=== PATIENT | male | born 1965 | race Caucasian/White ===

== ENCOUNTER 2021-08-04 12:48 | Observation (INO) ==
[2021-08-04 14:31] LABS: Basophils # 0.1 10*3/uL (0.0-0.2); Basophils % 0.5 % (0.0-0.8); Eosinophils # 0.1 10*3/uL (0.0-0.87); Eosinophils % 0.4 % (0.00-10.9); Hematocrit 46.7 VOL% (42.0-52.0); Hemoglobin 15.7 GM/DL (14.0-18.0); Immature Granulocytes % 0.5 %; Immature Granulocytes Absolute 0.06 #; Lymphocytes # 2.6 10*3/uL (1.4-4.0); Mean Corpuscular HGB Conc 33.6 GM/DL (32-36); Mean Corpuscular Volume 95.3 FL (87-102); Monocytes % 5.8 % (1.7-12.7); Neutrophils % 70.8 % (38.7-73.9); Platelet Count 304 T/CUMM (130-400); Red Cell Distribution Width 13.2 % (9.3-17.3)
[2021-08-04 14:51] LABS: Bilirubin,Total 0.4 MG/DL (0.20-1.00); Calcium 9.6 MG/DL (8.5-10.1); Osmolality,Calculated 268.2 MOS/KG (273-304); Potassium 4.4 MMOL/L (3.5-5.1); Total Protein 7.5 G/DL (6.4-8.2)
[2021-08-04] MEDS ORDERED: ASPIRIN CHEW 81 MG TABLET PO STA (15:29)
[2021-08-04] MEDS ORDERED: MORPHINE 2 MG/1 ML SYRINGE IV PRN (16:01)
[2021-08-04] MEDS ORDERED: DOCUSATE SODIUM 100 MG CAPSULE PO PRN (16:01)
[2021-08-04] MEDS ORDERED: ALBUTEROL 2.5 MG/3 ML NEB RESP TX PRN (16:01)
[2021-08-04] MEDS ORDERED: NICOTINE 21 MG/24 HR PATCH TRANSDERM PRN (16:01)
[2021-08-04] MEDS ORDERED: hydrALAZINE 20 MG/1 ML VIAL IV PRN (16:01)
[2021-08-04] MEDS ORDERED: DEXTROSE 50% 25 GM/50 ML VIAL IV PRN (16:01)
[2021-08-04] MEDS ORDERED: GLUCAGON 1 MG VIAL IM PRN (16:01)
[2021-08-04] MEDS ORDERED: ONDANSETRON 4 MG/2 ML VIAL IV PRN (16:01)
[2021-08-04] MEDS ORDERED: ACETAMINOPHEN 325 MG TABLET PO PRN (16:01)
[2021-08-04 16:18] LABS: Bilirubin,Urine Negative (Negative); Blood, Urine Negative (Negative); Glucose,Urine (UA) Negative (Negative); Hyaline Casts,Urine 57 /LPF (0-3); Ketones,Urine 5 mg/dL (Negative); Mucus,Urine Few /LPF (Occasional); Nitrite,Urine Negative (Negative); Protein,Urine Negative; RBC,Urine 3 /HPF (0-4); Squamous Epithelial Cell,Urine Occasional /HPF (0-10); Urine Appearance CLEAR (Clear); Urine Color Yellow (Yellow); Urine Specific Gravity 1.027 (1.001-1.035); Urine Urobilinogen < 2.0 EU/DL (0.2-1.0)
[2021-08-04] MEDS ORDERED: ENOXAPARIN 40 MG/0.4 ML SYRINGE SUBCUT SCH (16:30)
[2021-08-04] MEDS ORDERED: NITROGLYCERIN SL 0.4 MG TABLET SL PRN (16:51)
[2021-08-04 17:29] LABS: Barbiturates Screen,Urine Negative (Negative); Benzodiazepines Screen,Urine Negative (Negative); Cannabinoid Screen,Urine Negative (Negative); Opiate Screen,Urine Negative (Negative); Phencyclidine Screen,Urine Negative (Negative)
[2021-08-04] MEDS: ROSUVASTATIN 20 MG TABLET PO SCH (20:36)
[2021-08-04] MEDS: ENOXAPARIN 100 MG/ML SYRINGE SUBCUT SCH (20:37)
[2021-08-05] MEDS: ENOXAPARIN 100 MG/ML SYRINGE SUBCUT SCH (04:07)
[2021-08-05 05:31] LABS: Basophils % 0.3 % (0.0-0.8); Eosinophils # 0.1 10*3/uL (0.0-0.87); Eosinophils % 0.5 % (0.00-10.9); Hematocrit 45.7 VOL% (42.0-52.0); Immature Granulocytes % 0.3 %; Immature Granulocytes Absolute 0.04 #; Lymphocytes # 2.4 10*3/uL (1.4-4.0); Lymphocytes % 20.2 % (21.2-54.2); Mean Corpuscular HGB Conc 32.8 GM/DL (32-36); Mean Corpuscular Volume 96.2 FL (87-102); Mean Platelet Volume 10.4 FL (9.6-12.0); Monocytes % 7.6 % (1.7-12.7); Neutrophils % 71.1 % (38.7-73.9); Platelet Count 257 T/CUMM (130-400); Red Blood Count 4.75 MC/CUMM (3.8-5.5); Red Cell Distribution Width 13.3 % (9.3-17.3); White Blood Count 11.6 T/CUMM (4-12)
[2021-08-05 06:52] LABS: Albumin 3.4 G/DL (3.4-5.0); Bilirubin,Total 1.2 MG/DL (0.20-1.00); Calcium 8.9 MG/DL (8.5-10.1); Osmolality,Calculated 265.4 MOS/KG (273-304); Potassium 4.2 MMOL/L (3.5-5.1); Risk Ratio 5.21; Thyroid Stimulating Hormone 4.02 uIU/ml (0.358-3.74); Total Protein 6.9 G/DL (6.4-8.2)
[2021-08-05] MEDS ORDERED: DIAZEPAM 5 MG TABLET PO ONE (07:03)
[2021-08-05] MEDS ORDERED: MAGNESIUM SULF RIDER 2 GM/50 ML PREMIX IV PRN (07:03)
[2021-08-05] MEDS ORDERED: diphenhydrAMINE CAP 50 MG CAPSULE PO ONE (07:03)
[2021-08-05] MEDS ORDERED: POTASSIUM CHLORIDE RIDER 10 MEQ/100 ML PREMIX IV PRN (07:03)
[2021-08-05] MEDS ORDERED: LIDOCAINE 1% 20 ML VIAL ONE (07:07)
[2021-08-05] MEDS ORDERED: HEPARIN/NACL 0.9% 2 UNITS/ML 2,000 UNIT/1,000 ML BAG IV ONE (07:07)
[2021-08-05] MEDS: ASPIRIN EC 81 MG TABLET PO SCH ×2 (07:24→09:50)
[2021-08-05] MEDS ORDERED: SODIUM CHLORIDE 0.9% 1,000 ML IV SCH (07:30)
[2021-08-05] MEDS ORDERED: MIDAZOLAM 2 MG/2 ML VIAL ONE (07:41)
[2021-08-05] MEDS ORDERED: HYDROmorphone 2 MG/1 ML VIAL ONE (07:41)
[2021-08-05] MEDS ORDERED: ZALEPLON 5 MG CAPSULE PO PRN (08:50)
[2021-08-05] MEDS ORDERED: ASPIRIN CHEW 81 MG TABLET PO SCH (09:00)
[2021-08-05] MEDS: PANTOPRAZOLE 40 MG TABLET PO SCH (09:35)
[2021-08-05] MEDS: METOPROLOL SUCCINATE XL 50 MG TABLET PO SCH (11:14)
[2021-08-05] MEDS: ROSUVASTATIN 20 MG TABLET PO SCH (20:41)
[2021-08-06 05:16] LABS: Basophils % 0.2 % (0.0-0.8); Eosinophils # 0.1 10*3/uL (0.0-0.87); Eosinophils % 0.6 % (0.00-10.9); Immature Granulocytes % 0.4 %; Immature Granulocytes Absolute 0.04 #; Lymphocytes # 2.2 10*3/uL (1.4-4.0); Lymphocytes % 21.7 % (21.2-54.2); Mean Corpuscular HGB Conc 32.6 GM/DL (32-36); Mean Corpuscular Volume 94.9 FL (87-102); Mean Platelet Volume 10.2 FL (9.6-12.0); Monocytes % 7.9 % (1.7-12.7); Neutrophils % 69.2 % (38.7-73.9); Platelet Count 215 T/CUMM (130-400); Red Blood Count 4.53 MC/CUMM (3.8-5.5); Red Cell Distribution Width 13.2 % (9.3-17.3)
[2021-08-06 05:38] LABS: Calcium 8.5 MG/DL (8.5-10.1); Osmolality,Calculated 268.1 MOS/KG (273-304)
[2021-08-06 05:47] LABS: CKMB % 9.1 %
[2021-08-06 05:52] LABS: High Sensitive Troponin I* 17062.9 ng/L (0-78)
[2021-08-06] MEDS: METOPROLOL SUCCINATE XL 50 MG TABLET PO SCH (08:29)
[2021-08-06] MEDS: PANTOPRAZOLE 40 MG TABLET PO SCH (08:29)
[2021-08-06] MEDS: ASPIRIN EC 81 MG TABLET PO SCH (08:29)
[2021-08-06 09:42] VITALS: BP 140/86
== END 2021-08-06 11:43 | disposition home or self-care (01) ==
LOC: N.ED 12:48 → N.EDINP 12:48 → N.TELEN 19:14
PROVIDERS: ADMIT Internal Medicine Geriatric Medicine; ATTEND Internal Medicine Geriatric Medicine

== ENCOUNTER 2021-08-10 09:05 | Inpatient (IN) ==
[2021-08-10] MEDS ORDERED: DEXTROSE 50% 25 GM/50 ML VIAL IV PRN (09:10)
[2021-08-10] MEDS ORDERED: GLUCAGON 1 MG VIAL IM PRN (09:10)
[2021-08-10] MEDS ORDERED: CLORAZEPATE 3.75 MG TABLET PO PRN (09:19)
[2021-08-10] MEDS ORDERED: NICOTINE 21 MG/24 HR PATCH TRANSDERM PRN (09:19)
[2021-08-10] MEDS ORDERED: MORPHINE 2 MG/1 ML SYRINGE IV PRN (09:19)
[2021-08-10] MEDS ORDERED: NITROGLYCERIN SL 0.4 MG TABLET SL PRN (09:19)
[2021-08-10] MEDS ORDERED: SODIUM CHLORIDE 0.9% 1,000 ML IV SCH (09:30)
[2021-08-10] MEDS ORDERED: CLORAZEPATE 7.5 MG TABLET PO PRN (09:30)
[2021-08-10 10:03] LABS: ABG Base Excess 1.2 MMOL/L (-2.5-2.5); ABG HCO3 25.5 MMOL/L (20-26); ABG Oxygen Saturation 98.5 % (95-100); ABG PCO2 33.9 MM HG (35-48); ABG PH 7.464 (7.35-7.45); ABG PO2 98.2 MM HG (80-95); ABG TCO2 20.5 MMOL/L (23-27)
[2021-08-10 10:09] LABS: Basophils % 0.4 % (0.0-0.8); Eosinophils # 0.1 10*3/uL (0.0-0.87); Eosinophils % 1.2 % (0.00-10.9); Hematocrit 47.4 VOL% (42.0-52.0); Hemoglobin 15.9 GM/DL (14.0-18.0); Immature Granulocytes % 0.5 %; Immature Granulocytes Absolute 0.05 #; Lymphocytes % 19.6 % (21.2-54.2); Mean Corpuscular HGB Conc 33.5 GM/DL (32-36); Mean Corpuscular Volume 93.7 FL (87-102); Mean Platelet Volume 10.9 FL (9.6-12.0); Monocytes % 7.6 % (1.7-12.7); Neutrophils % 70.7 % (38.7-73.9); Platelet Count 292 T/CUMM (130-400); Red Blood Count 5.06 MC/CUMM (3.8-5.5); Red Cell Distribution Width 12.9 % (9.3-17.3); White Blood Count 10.3 T/CUMM (4-12)
[2021-08-10 10:20] LABS: Alanine Aminotransferase 26 U/L (16-61); Albumin 3.7 G/DL (3.4-5.0); Alkaline Phosphatase 82 U/L (45-117); Aspartate Amino Transferase 21 U/L (0-37); Blood Urea Nitrogen 8 MG/DL (7-18); Calcium 9.7 MG/DL (8.5-10.1); Carbon Dioxide 29 MMOL/L (21-32); Glucose 108 MG/DL (74-106); Osmolality,Calculated 266.2 MOS/KG (273-304); Potassium 4.4 MMOL/L (3.5-5.1); Sodium 134 MMOL/L (136-145); Total Protein 8.3 G/DL (6.4-8.2)
[2021-08-10 10:21] LABS: Estimated Glom Filtration Rate 0 ML/MIN
[2021-08-10] MEDS ORDERED: DIAZEPAM 5 MG TABLET PO ONE (11:33)
[2021-08-10] MEDS ORDERED: PANTOPRAZOLE 40 MG TABLET PO ONE (11:33)
[2021-08-10] MEDS ORDERED: hydrALAZINE 20 MG/1 ML VIAL IV PRN (12:46)
[2021-08-10] MEDS: CHLORHEXIDINE 4% SOLN 118 ML BOTTLE TOP SCH ×2 (15:32→20:47)
[2021-08-10] MEDS: CHLORHEXIDINE 0.12% ORAL RINSE 60 ML BOTTLE SWISH/SPIT SCH (20:47)
[2021-08-11] MEDS ORDERED: VANCOMYCIN 1,000 MG VIAL ONE (04:24)
[2021-08-11] MEDS ORDERED: PAPAVERINE 60 MG/2 ML VIAL ONE (04:24)
[2021-08-11] MEDS ORDERED: VANCOMYCIN 500 MG VIAL ONE (04:24)
[2021-08-11] MEDS: CHLORHEXIDINE 4% SOLN 118 ML BOTTLE TOP SCH ×2 (04:50→08:09)
[2021-08-11] MEDS ORDERED: CEFUROXIME INJ 1,500 MG in SODIUM CHLORIDE 0.9% 100 ML IV ONE (05:00)
[2021-08-11] MEDS: CHLORHEXIDINE 0.12% ORAL RINSE 60 ML BOTTLE SWISH/SPIT SCH ×3 (05:18→21:58)
[2021-08-11] MEDS ORDERED: SUFentanil 250 MCG/5 ML AMP ONE (05:54)
[2021-08-11] MEDS ORDERED: SODIUM CHLORIDE 0.9% 250 ML IV ONE ×2 (05:54→05:55)
[2021-08-11] MEDS ORDERED: AMINOCAPROIC ACID 5,000 MG/20 ML VIAL ONE (05:54)
[2021-08-11] MEDS ORDERED: SODIUM CHLORIDE 0.9% 1,000 ML IV ONE (05:54)
[2021-08-11] MEDS ORDERED: HEPARIN/NACL 0.9% 2 UNITS/ML 1,000 UNIT/500 ML BAG IV ONE (05:54)
[2021-08-11] MEDS ORDERED: ETOMIDATE 40 MG/20 ML VIAL IV ONE (05:54)
[2021-08-11] MEDS ORDERED: LACTATED RINGERS 1,000 ML IV ONE (05:54)
[2021-08-11] MEDS ORDERED: LIDOCAINE 2% 5 ML VIAL ONE ×2 (05:54→10:16)
[2021-08-11] MEDS ORDERED: MIDAZOLAM 10 MG/2 ML VIAL ONE ×4 (05:54→08:43)
[2021-08-11] MEDS ORDERED: VECURONIUM 10 MG VIAL IV ONE ×3 (05:54→08:43)
[2021-08-11] MEDS ORDERED: MINERAL OIL/PETROLATUM OPH OINT 3.5 GM TUBE ONE (05:54)
[2021-08-11] MEDS ORDERED: PHENYLEPHRINE 10 MG/1 ML VIAL IV ONE (05:55)
[2021-08-11] MEDS ORDERED: PANTOPRAZOLE 40 MG TABLET PO ONE (06:00)
[2021-08-11] MEDS ORDERED: DIAZEPAM 5 MG TABLET PO ONE (06:00)
[2021-08-11] MEDS ORDERED: ePHEDrine 50 MG/ML VIAL ONE (07:27)
[2021-08-11 07:28] LABS: ABG Base Excess 0.7 MMOL/L (-2.5-2.5); ABG HCO3 25.1 MMOL/L (20-26); ABG PCO2 40.5 MM HG (35-48); ABG PH 7.406 (7.35-7.45); ABG TCO2 22.1 MMOL/L (23-27); Glucose Heart Surgery 119 MG/DL (74-106); Hematocrit Heart Surgery 40.8 PERCENT (42-52); Hemoglobin Heart Surgery 13.3 G/DL (14.0-18.0); Ionized Calcium Arterial 1.19 MMOL/L (1.21-1.46); PCO2 Patient Temp Arterial 40.5 MMHG; PH Patient Temp Arterial 7.406; Patient Temperature 37 CELCIUS; Potassium Heart/CVR 3.9 MMOL/L (3.5-5.1); Sodium Heart/CVR 138 MMOL/L (135-145)
[2021-08-11] MEDS ORDERED: POTASSIUM CHLORIDE RIDER 20 MEQ/100 ML PREMIX IV ONE (07:51)
[2021-08-11] MEDS ORDERED: NITROPRUSSIDE 50 MG/2 ML VIAL ONE (07:51)
[2021-08-11] MEDS ORDERED: SODIUM BICARBONATE 50 MEQ/50 ML VIAL IV ONE ×2 (07:51→10:17)
[2021-08-11] MEDS ORDERED: CALCIUM CHLORIDE 1,000 MG/10 ML SYRINGE IV ONE (07:52)
[2021-08-11] MEDS ORDERED: EPINEPHrine 1 MG/10 ML SYRINGE ONE (07:52)
[2021-08-11] MEDS ORDERED: PHENYLEPHRINE DRIP 40 MG/250 ML PREMIX IV ONE (07:52)
[2021-08-11] MEDS ORDERED: ALBUMIN 5% 12.5 GM/250 ML VIAL IV ONE ×2 (07:55)
[2021-08-11] MEDS ORDERED: diphenhydrAMINE 50 MG/1 ML VIAL ONE (08:43)
[2021-08-11] MEDS ORDERED: SEVOFLURANE 1 UNIT/15 MINUTE INH ONE (08:47)
[2021-08-11 08:57] LABS: Hematocrit Heart Surgery 29.5 PERCENT (42-52); Hemoglobin Heart Surgery 9.5 G/DL (14.0-18.0); PCO2 Patient Temp Venous 41.5 MM HG; PH Patient Temp Venous 7.404; PO2 Patient Temp Venous 43.2 MM HG; Potassium Heart/CVR 5.2 MMOL/L (3.5-5.1); VBG Base Excess 1.2 MEQ/L (0-4); VBG HCO3 25.3 MEQ/L (24-28); VBG Oxygen Saturation 82.6 %; VBG PCO2 45.8 MMHG (41-51); VBG PH 7.375; VBG PO2 49.6 MMHG (17-40); VBG Total CO2 24.6 MMOL/L
[2021-08-11] MEDS ORDERED: FAMOTIDINE 20 MG/2 ML VIAL IV ONE (09:23)
[2021-08-11 09:29] LABS: Hematocrit Heart Surgery 31.6 PERCENT (42-52); Hemoglobin Heart Surgery 10.2 G/DL (14.0-18.0); PCO2 Patient Temp Venous 33.2 MM HG; PH Patient Temp Venous 7.477; PO2 Patient Temp Venous 31.8 MM HG; Potassium Heart/CVR 4.8 MMOL/L (3.5-5.1); VBG Base Excess 1.4 MEQ/L (0-4); VBG HCO3 25.3 MEQ/L (24-28); VBG Oxygen Saturation 73.4 %; VBG PCO2 38.4 MMHG (41-51); VBG PH 7.432; VBG PO2 39.2 MMHG (17-40); VBG Total CO2 23.3 MMOL/L
[2021-08-11] MEDS ORDERED: SUFentanil 50 MCG/ML AMP ONE ×2 (09:55)
[2021-08-11 10:00] LABS: Hematocrit Heart Surgery 33.5 PERCENT (42-52); Hemoglobin Heart Surgery 10.8 G/DL (14.0-18.0); PCO2 Patient Temp Venous 37.1 MM HG; PH Patient Temp Venous 7.432; PO2 Patient Temp Venous 38.5 MM HG; Potassium Heart/CVR 5.2 MMOL/L (3.5-5.1); VBG Base Excess 0.7 MEQ/L (0-4); VBG HCO3 24.6 MEQ/L (24-28); VBG Oxygen Saturation 72.5 %; VBG PCO2 37.1 MMHG (41-51); VBG PH 7.432; VBG PO2 38.5 MMHG (17-40); VBG Total CO2 22.4 MMOL/L
[2021-08-11] MEDS ORDERED: DEXTROSE 5% KCL 20 MEQ 20 MEQ/1,000 ML BAG IV ONE (10:16)
[2021-08-11] MEDS ORDERED: MANNITOL 100 GM/500 ML BAG IV ONE (10:16)
[2021-08-11] MEDS ORDERED: methylPREDNISolone SOD SUC 1,000 MG/8 ML VIAL ONE (10:16)
[2021-08-11] MEDS ORDERED: ALBUMIN 25% 25 GM/100 ML VIAL IV ONE (10:16)
[2021-08-11] MEDS ORDERED: PROTAMINE SULFATE 250 MG/25 ML VIAL IV ONE (10:16)
[2021-08-11] MEDS ORDERED: MAGNESIUM SULFATE 5 GM/10 ML VIAL IV ONE (10:16)
[2021-08-11] MEDS ORDERED: HEPARIN 10,000 UNIT/10 ML VIAL ONE (10:17)
[2021-08-11] MEDS ORDERED: PROTAMINE SULFATE 50 MG/5 ML VIAL IV ONE (10:17)
[2021-08-11] MEDS ORDERED: FUROSEMIDE 20 MG/2 ML VIAL ONE (10:17)
[2021-08-11 10:30] LABS: ABG Base Excess -0.8 MMOL/L (-2.5-2.5); ABG HCO3 23.7 MMOL/L (20-26); ABG Oxygen Saturation 99.7 % (95-100); ABG PCO2 43.7 MM HG (35-48); ABG PH 7.361 (7.35-7.45); ABG TCO2 22.2 MMOL/L (23-27); Glucose Heart Surgery 226 MG/DL (74-106); Hematocrit Heart Surgery 34.3 PERCENT (42-52); Hemoglobin Heart Surgery 11.1 G/DL (14.0-18.0); Ionized Calcium Arterial 1.27 MMOL/L (1.21-1.46); PCO2 Patient Temp Arterial 43.7 MMHG; PH Patient Temp Arterial 7.361; Patient Temperature 37 CELCIUS; Potassium Heart/CVR 4.5 MMOL/L (3.5-5.1); Sodium Heart/CVR 131 MMOL/L (135-145)
[2021-08-11] MEDS ORDERED: LACTATED RINGERS 250 ML IV PRN (10:42)
[2021-08-11] MEDS ORDERED: MAGNESIUM SULF RIDER 2 GM/50 ML PREMIX IV PRN (10:42)
[2021-08-11] MEDS ORDERED: MIDAZOLAM 10 MG/2 ML VIAL IV PRN (10:42)
[2021-08-11] MEDS ORDERED: POTASSIUM CHLORIDE RIDER 10 MEQ/100 ML PREMIX IV PRN (10:42)
[2021-08-11] MEDS ORDERED: ALBUMIN 5% 12.5 GM/250 ML VIAL IV PRN (10:42)
[2021-08-11] MEDS ORDERED: VECURONIUM 10 MG VIAL IV PRN ×2 (10:42)
[2021-08-11] MEDS ORDERED: ACETAMINOPHEN 650 MG SUPP RECTAL PRN (10:42)
[2021-08-11] MEDS ORDERED: ONDANSETRON 4 MG/2 ML VIAL IV PRN (10:42)
[2021-08-11] MEDS ORDERED: DEXTROSE 50% 25 GM/50 ML VIAL IV PRN ×2 (10:42)
[2021-08-11] MEDS ORDERED: CHLORHEXIDINE 4% SOLN 118 ML BOTTLE TOP PRN (10:42)
[2021-08-11] MEDS ORDERED: POTASSIUM CHLORIDE RIDER 20 MEQ/100 ML PREMIX IV PRN (10:42)
[2021-08-11] MEDS ORDERED: PHENYLEPHRINE DRIP 40 MG/250 ML PREMIX IV PRN (10:42)
[2021-08-11] MEDS ORDERED: NITROPRUSSIDE 100 MG in DEXTROSE 5% 250 ML IV PRN (10:42)
[2021-08-11] MEDS ORDERED: MIDAZOLAM 2 MG/2 ML VIAL IV PRN (10:42)
[2021-08-11] MEDS ORDERED: INSULIN REGULAR 100 UNIT/ML IV ONE (10:42)
[2021-08-11] MEDS ORDERED: MAGNESIUM SULF RIDER 4 GM/100 ML PREMIX IV PRN (10:42)
[2021-08-11] MEDS ORDERED: CALCIUM CHLORIDE 1,000 MG/10 ML SYRINGE IV PRN (10:42)
[2021-08-11] MEDS ORDERED: INSULIN REGULAR 100 UNIT/ML IV PRN (10:42)
[2021-08-11] MEDS ORDERED: SODIUM CHLORIDE 0.45% 1,000 ML IV SCH ×2 (11:00)
[2021-08-11] MEDS ORDERED: INSULIN REGULAR DRIP 100 ML IV SCH (11:00)
[2021-08-11 11:31] LABS: ABG Base Excess 1.1 MMOL/L (-2.5-2.5); ABG HCO3 25.4 MMOL/L (20-26); ABG Oxygen Saturation 99.5 % (95-100); ABG PCO2 40.2 MM HG (35-48); ABG PH 7.413 (7.35-7.45); ABG TCO2 22.7 MMOL/L (23-27); Glucose Heart Surgery 191 MG/DL (74-106); Hematocrit Heart Surgery 37.4 PERCENT (42-52); Hemoglobin Heart Surgery 12.1 G/DL (14.0-18.0); Potassium Heart/CVR 4.2 MMOL/L (3.5-5.1)
[2021-08-11 11:37] LABS: Basophils % 0.2 % (0.0-0.8); Eosinophils # 0.1 10*3/uL (0.0-0.87); Eosinophils % 0.6 % (0.00-10.9); Hematocrit 36.3 VOL% (42.0-52.0); Immature Granulocytes Absolute 0.12 #; Lymphocytes # 0.9 10*3/uL (1.4-4.0); Lymphocytes % 6.9 % (21.2-54.2); Mean Corpuscular HGB Conc 33.6 GM/DL (32-36); Mean Corpuscular Volume 93.6 FL (87-102); Mean Platelet Volume 10.2 FL (9.6-12.0); Monocytes % 5.6 % (1.7-12.7); Neutrophils % 85.7 % (38.7-73.9); Platelet Count 249 T/CUMM (130-400); Red Cell Distribution Width 12.9 % (9.3-17.3); White Blood Count 12.5 T/CUMM (4-12)
[2021-08-11 11:38] LABS: Hemoglobin 12.2 GM/DL (14.0-18.0); Red Blood Count 3.88 MC/CUMM (3.8-5.5)
[2021-08-11 11:44] LABS: INR 1.1; PT Patient Result 12.3 SECS (10.5-12.0); Partial Thromboplastin Time 30.4 SECS (23.9-33.8)
[2021-08-11 11:50] LABS: Albumin 3.1 G/DL (3.4-5.0); Bilirubin,Total 0.8 MG/DL (0.20-1.00); Calcium 8.5 MG/DL (8.5-10.1); Potassium 4.3 MMOL/L (3.5-5.1); Total Protein 5.9 G/DL (6.4-8.2)
[2021-08-11 11:52] LABS: CKMB % 5.5 %
[2021-08-11 11:57] LABS: High Sensitive Troponin I* 5206.4 ng/L (0-78)
[2021-08-11 12:58] LABS: ABG HCO3 25.3 MMOL/L (20-26); ABG Oxygen Saturation 97.9 % (95-100); ABG PCO2 40.5 MM HG (35-48); ABG TCO2 22.5 MMOL/L (23-27); Glucose Heart Surgery 119 MG/DL (74-106); Hemoglobin Heart Surgery 12.7 G/DL (14.0-18.0); Potassium Heart/CVR 3.9 MMOL/L (3.5-5.1)
[2021-08-11] MEDS ORDERED: LACTATED RINGERS 1,000 ML IV PRN (14:25)
[2021-08-11 15:38] LABS: ABG Base Excess -0.2 MMOL/L (-2.5-2.5); ABG HCO3 24.3 MMOL/L (20-26); ABG Oxygen Saturation 95.9 % (95-100); ABG PCO2 39.4 MM HG (35-48); ABG PH 7.408 (7.35-7.45); ABG TCO2 25.5 MMOL/L (23-27); Glucose Heart Surgery 292 MG/DL (74-106); Hemoglobin Heart Surgery 13.4 G/DL (14.0-18.0); Potassium Heart/CVR 4.6 MMOL/L (3.5-5.1)
[2021-08-11 16:36] LABS: Bacteria,Urine Occasional /HPF (Few); Bilirubin,Urine Negative (Negative); Blood, Urine Negative (Negative); Glucose,Urine (UA) Negative (Negative); Hyaline Casts,Urine 1 /LPF (0-3); Ketones,Urine Negative (Negative); Nitrite,Urine Negative (Negative); Protein,Urine Negative; RBC,Urine <1 /HPF (0-4); Urine Appearance CLEAR (Clear); Urine Color Yellow (Yellow); Urine Specific Gravity 1.005 (1.001-1.035); Urine Urobilinogen < 2.0 EU/DL (0.2-1.0)
[2021-08-11 17:59] LABS: ABG Base Excess -1.2 MMOL/L (-2.5-2.5); ABG HCO3 23.4 MMOL/L (20-26); ABG Oxygen Saturation 96.5 % (95-100); ABG PCO2 38.6 MM HG (35-48); ABG PH 7.391 (7.35-7.45); ABG PO2 85.8 MM HG (80-95); ABG TCO2 20.8 MMOL/L (23-27); Glucose Heart Surgery 184 MG/DL (74-106); Hematocrit Heart Surgery 37.3 PERCENT (42-52); Hemoglobin Heart Surgery 12.1 G/DL (14.0-18.0); Potassium Heart/CVR 4.7 MMOL/L (3.5-5.1)
[2021-08-11] MEDS: CEFUROXIME INJ 1,500 MG in SODIUM CHLORIDE 0.9% 100 ML IV SCH (18:10)
[2021-08-11 18:22] LABS: ABG Base Excess -1.5 MMOL/L (-2.5-2.5); ABG HCO3 23.2 MMOL/L (20-26); ABG Oxygen Saturation 97.4 % (95-100); ABG PCO2 38.3 MM HG (35-48); ABG PO2 94.7 MM HG (80-95); ABG TCO2 20.5 MMOL/L (23-27); Glucose Heart Surgery 183 MG/DL (74-106); Hematocrit Heart Surgery 37.6 PERCENT (42-52); Hemoglobin Heart Surgery 12.2 G/DL (14.0-18.0); Potassium Heart/CVR 4.7 MMOL/L (3.5-5.1)
[2021-08-11] MEDS: KETOROLAC 30 MG/1 ML VIAL IV SCH (18:37)
[2021-08-11] MEDS ORDERED: FUROSEMIDE 40 MG/4 ML VIAL IV PRN (19:16)
[2021-08-11 20:07] LABS: CKMB % 5.1 %
[2021-08-11 20:08] LABS: High Sensitive Troponin I* 3753.7 ng/L (0-78)
[2021-08-11] MEDS: MORPHINE 10 MG/1 ML VIAL IV PRN (21:57)
[2021-08-12] MEDS: KETOROLAC 30 MG/1 ML VIAL IV SCH ×4 (01:01→21:43)
[2021-08-12] MEDS: INSULIN REGULAR 100 UNIT/ML SUBCUT SCH ×4 (01:11→18:05)
[2021-08-12 03:20] LABS: ABG HCO3 23.5 MMOL/L (20-26); ABG Oxygen Saturation 93.7 % (95-100); ABG PCO2 34.1 MM HG (35-48); ABG TCO2 20.2 MMOL/L (23-27); Glucose Heart Surgery 144 MG/DL (74-106); Hematocrit Heart Surgery 35.2 PERCENT (42-52); Hemoglobin Heart Surgery 11.4 G/DL (14.0-18.0); Potassium Heart/CVR 4.1 MMOL/L (3.5-5.1)
[2021-08-12 03:23] LABS: Basophils % 0.1 % (0.0-0.8); Hematocrit 34.1 VOL% (42.0-52.0); Hemoglobin 11.4 GM/DL (14.0-18.0); Immature Granulocytes % 0.6 %; Immature Granulocytes Absolute 0.11 #; Lymphocytes % 5.6 % (21.2-54.2); Mean Corpuscular HGB Conc 33.4 GM/DL (32-36); Mean Corpuscular Volume 94.5 FL (87-102); Mean Platelet Volume 10.5 FL (9.6-12.0); Neutrophils % 88.7 % (38.7-73.9); Platelet Count 246 T/CUMM (130-400); Red Blood Count 3.61 MC/CUMM (3.8-5.5); Red Cell Distribution Width 12.9 % (9.3-17.3); White Blood Count 18.3 T/CUMM (4-12)
[2021-08-12 03:43] LABS: Albumin 3.2 G/DL (3.4-5.0); Bilirubin,Direct 0.1 MG/DL (0.0-0.20); Bilirubin,Total 0.5 MG/DL (0.20-1.00); CKMB % 3.9 %; Calcium 8.2 MG/DL (8.5-10.1); Osmolality,Calculated 273.1 MOS/KG (273-304); Potassium 4.1 MMOL/L (3.5-5.1); Total Protein 6.6 G/DL (6.4-8.2)
[2021-08-12 03:44] LABS: High Sensitive Troponin I* 3338.4 ng/L (0-78)
[2021-08-12 03:46] LABS: ABG Base Excess -0.7 MMOL/L (-2.5-2.5); ABG HCO3 23.7 MMOL/L (20-26); ABG Oxygen Saturation 93.7 % (95-100); ABG PH 7.428 (7.35-7.45); ABG PO2 67.7 MM HG (80-95); ABG TCO2 20.6 MMOL/L (23-27); Glucose Heart Surgery 143 MG/DL (74-106); Hematocrit Heart Surgery 35.5 PERCENT (42-52); Hemoglobin Heart Surgery 11.5 G/DL (14.0-18.0); Potassium Heart/CVR 4.1 MMOL/L (3.5-5.1)
[2021-08-12] MEDS: MORPHINE 10 MG/1 ML VIAL IV PRN (05:21)
[2021-08-12] MEDS: CEFUROXIME INJ 1,500 MG in SODIUM CHLORIDE 0.9% 100 ML IV SCH ×2 (06:19→23:56)
[2021-08-12] MEDS: ASPIRIN EC 325 MG TABLET PO SCH (09:24)
[2021-08-12] MEDS: CHLORHEXIDINE 0.12% ORAL RINSE 60 ML BOTTLE SWISH/SPIT SCH ×3 (09:24→21:39)
[2021-08-12] MEDS ORDERED: MAGNESIUM SULF RIDER 2 GM/50 ML PREMIX IV PRN (09:57)
[2021-08-12] MEDS ORDERED: ONDANSETRON 4 MG/2 ML VIAL IV PRN (09:57)
[2021-08-12] MEDS ORDERED: DEXTROSE 50% 25 GM/50 ML VIAL IV PRN (09:57)
[2021-08-12] MEDS ORDERED: GLUCAGON 1 MG VIAL IM PRN (09:57)
[2021-08-12] MEDS ORDERED: MAGNESIUM HYDROXIDE SUSP 30 ML UDCUP PO PRN (09:57)
[2021-08-12] MEDS ORDERED: ACETAMINOPHEN 325 MG TABLET PO PRN (09:57)
[2021-08-12] MEDS ORDERED: POTASSIUM CHLORIDE 20 MEQ TABLET PO PRN (09:57)
[2021-08-12] MEDS ORDERED: ALUMINUM/MAGNES/SIMETH MAX STR 30 ML UDCUP PO PRN (09:57)
[2021-08-12] MEDS ORDERED: MAGNESIUM SULF RIDER 4 GM/100 ML PREMIX IV PRN (09:57)
[2021-08-12] MEDS ORDERED: oxyCODONE/ACETAMINOPHEN 5-325 MG TABLET PO PRN (09:57)
[2021-08-12] MEDS ORDERED: SODIUM CHLOR 0.45% KCL 20 MEQ 20 MEQ/1,000 ML BAG IV SCH (09:57)
[2021-08-12] MEDS: PANTOPRAZOLE 40 MG TABLET PO SCH (10:55)
[2021-08-12] MEDS: FERROUS SULFATE 325 MG TABLET PO SCH (10:55)
[2021-08-12] MEDS: DOCUSATE SODIUM 100 MG CAPSULE PO SCH (10:55)
[2021-08-12 11:06] LABS: CKMB % 2.8 %
[2021-08-12 11:17] LABS: High Sensitive Troponin I* 2837.9 ng/L (0-78)
[2021-08-12] MEDS: ALBUTEROL/IPRATROPIUM 3 ML NEB RESP TX SCH ×2 (14:55→19:40)
[2021-08-12] MEDS: ASCORBIC ACID 500 MG TABLET PO SCH (16:48)
[2021-08-12] MEDS: ROSUVASTATIN 20 MG TABLET PO SCH (21:38)
[2021-08-12] MEDS: ZALEPLON 5 MG CAPSULE PO PRN (21:38)
[2021-08-13] MEDS: INSULIN REGULAR 100 UNIT/ML SUBCUT SCH ×5 (00:04→23:57)
[2021-08-13] MEDS: ALBUTEROL/IPRATROPIUM 3 ML NEB RESP TX SCH ×4 (00:28→19:20)
[2021-08-13] MEDS: KETOROLAC 30 MG/1 ML VIAL IV SCH ×4 (01:39→20:51)
[2021-08-13 04:22] LABS: Basophils % 0.1 % (0.0-0.8); Hematocrit 30.4 VOL% (42.0-52.0); Hemoglobin 9.8 GM/DL (14.0-18.0); Immature Granulocytes % 0.8 %; Immature Granulocytes Absolute 0.14 #; Lymphocytes # 1.3 10*3/uL (1.4-4.0); Lymphocytes % 7.2 % (21.2-54.2); Mean Corpuscular HGB Conc 32.2 GM/DL (32-36); Mean Corpuscular Volume 96.8 FL (87-102); Mean Platelet Volume 10.8 FL (9.6-12.0); Monocytes % 6.7 % (1.7-12.7); Neutrophils % 85.2 % (38.7-73.9); Platelet Count 230 T/CUMM (130-400); Red Blood Count 3.14 MC/CUMM (3.8-5.5); Red Cell Distribution Width 12.9 % (9.3-17.3); White Blood Count 18.3 T/CUMM (4-12)
[2021-08-13 04:46] LABS: Alanine Aminotransferase 22 U/L (16-61); Alkaline Phosphatase 52 U/L (45-117); Aspartate Amino Transferase 45 U/L (0-37); Bilirubin,Direct < 0.100 MG/DL (0.0-0.20); Bilirubin,Total < 0.39 MG/DL (0.20-1.00); Blood Urea Nitrogen 26 MG/DL (7-18); Calcium 8.3 MG/DL (8.5-10.1); Carbon Dioxide 27 MMOL/L (21-32); Estimated Glom Filtration Rate 114 ML/MIN; Glucose 125 MG/DL (74-106); Osmolality,Calculated 269.5 MOS/KG (273-304); Potassium 4.4 MMOL/L (3.5-5.1); Sodium 132 MMOL/L (136-145); Total Protein 6.2 G/DL (6.4-8.2)
[2021-08-13 04:59] LABS: Alanine Aminotransferase 21 U/L (16-61); Alkaline Phosphatase 54 U/L (45-117); Aspartate Amino Transferase 40 U/L (0-37); Bilirubin,Direct < 0.100 MG/DL (0.0-0.20); Bilirubin,Indirect 0.5 MG/DL (0.0-1.0); CKMB % 1.4 %; Total Protein 6.4 G/DL (6.4-8.2)
[2021-08-13] MEDS ORDERED: FUROSEMIDE 40 MG/4 ML VIAL IV ONE (06:00)
[2021-08-13] MEDS: ASPIRIN EC 325 MG TABLET PO SCH (09:19)
[2021-08-13] MEDS: CHLORHEXIDINE 0.12% ORAL RINSE 60 ML BOTTLE SWISH/SPIT SCH ×2 (09:20→20:52)
[2021-08-13] MEDS: FERROUS SULFATE 325 MG TABLET PO SCH (09:20)
[2021-08-13] MEDS: DOCUSATE SODIUM 100 MG CAPSULE PO SCH (09:20)
[2021-08-13] MEDS: POLYETHYLENE GLYCOL POWDER 17 GM PACK PO SCH (09:20)
[2021-08-13] MEDS: PANTOPRAZOLE 40 MG TABLET PO SCH (09:20)
[2021-08-13] MEDS: ASCORBIC ACID 500 MG TABLET PO SCH ×2 (09:20→17:06)
[2021-08-13] MEDS: METOPROLOL TARTRATE 25 MG TABLET PO SCH ×2 (09:20→20:48)
[2021-08-13] MEDS ORDERED: POTASSIUM CHLORIDE 20 MEQ TABLET PO ONE (17:00)
[2021-08-13] MEDS: ZALEPLON 5 MG CAPSULE PO PRN (20:46)
[2021-08-13] MEDS: ROSUVASTATIN 20 MG TABLET PO SCH (20:47)
[2021-08-14] MEDS: KETOROLAC 30 MG/1 ML VIAL IV SCH ×2 (00:50→06:13)
[2021-08-14] MEDS: ALBUTEROL/IPRATROPIUM 3 ML NEB RESP TX SCH ×2 (04:03→10:46)
[2021-08-14 06:01] LABS: Basophils % 0.1 % (0.0-0.8); Eosinophils % 0.1 % (0.00-10.9); Hemoglobin 10.4 GM/DL (14.0-18.0); Immature Granulocytes % 0.5 %; Immature Granulocytes Absolute 0.06 #; Lymphocytes # 2.7 10*3/uL (1.4-4.0); Mean Corpuscular HGB Conc 33.5 GM/DL (32-36); Mean Corpuscular Volume 93.7 FL (87-102); Mean Platelet Volume 10.9 FL (9.6-12.0); Monocytes % 7.5 % (1.7-12.7); Neutrophils % 68.8 % (38.7-73.9); Platelet Count 231 T/CUMM (130-400); Red Blood Count 3.31 MC/CUMM (3.8-5.5); Red Cell Distribution Width 12.9 % (9.3-17.3); White Blood Count 11.7 T/CUMM (4-12)
[2021-08-14] MEDS: INSULIN REGULAR 100 UNIT/ML SUBCUT SCH (06:06)
[2021-08-14 06:22] LABS: Albumin 2.9 G/DL (3.4-5.0); Bilirubin,Direct 0.12 MG/DL (0.0-0.20); Bilirubin,Total 0.7 MG/DL (0.20-1.00); Calcium 8.4 MG/DL (8.5-10.1); Osmolality,Calculated 272.1 MOS/KG (273-304); Total Protein 6.4 G/DL (6.4-8.2)
[2021-08-14 06:24] LABS: Bilirubin,Direct 0.13 MG/DL (0.0-0.20); Bilirubin,Indirect 1.6 MG/DL (0.0-1.0); Bilirubin,Total 1.7 MG/DL (0.20-1.00); CKMB % 0.7 %; Total Protein 5.9 G/DL (6.4-8.2)
[2021-08-14 06:25] LABS: High Sensitive Troponin I* 1568.7 ng/L (0-78)
[2021-08-14] MEDS: ASPIRIN EC 325 MG TABLET PO SCH (08:19)
[2021-08-14] MEDS: ASCORBIC ACID 500 MG TABLET PO SCH (08:19)
[2021-08-14] MEDS: PANTOPRAZOLE 40 MG TABLET PO SCH (08:19)
[2021-08-14] MEDS: FERROUS SULFATE 325 MG TABLET PO SCH (08:19)
[2021-08-14] MEDS: CHLORHEXIDINE 0.12% ORAL RINSE 60 ML BOTTLE SWISH/SPIT SCH (08:20)
[2021-08-14] MEDS: DOCUSATE SODIUM 100 MG CAPSULE PO SCH (08:42)
[2021-08-14] MEDS: POLYETHYLENE GLYCOL POWDER 17 GM PACK PO SCH (08:42)
[2021-08-14] MEDS ORDERED: METOPROLOL SUCCINATE XL 50 MG TABLET PO SCH (09:00)
[2021-08-14 11:00] VITALS: BP 125/66
== END 2021-08-14 10:44 | disposition home health service (06) | DRG 236 ==
LOC: N.4E 09:05 → N.CVR 08-11 10:41 → N.TELES 08-12 09:42